=== PATIENT | female | born 1960 | race Caucasian/White ===

== ENCOUNTER 2020-01-01 06:58 | Inpatient (IN) | payer OTHER ==
[2020-01-01] VITALS (29 sets, daily range): BP systolic 45–147; BP diastolic 14–83
[~2020-01-01] VITALS: Ht 154.9 cm; Wt 50.3 kg
[2020-01-01] MEDS ORDERED: CELEBREX50 MG PO (07:25)
[2020-01-01] MEDS ORDERED: FOLIC ACID1 MG PO (07:25)
[2020-01-01] MEDS ORDERED: ATENOLOL 25 MG25 M1 PO (07:25)
[2020-01-01] MEDS ORDERED: PREDNISONE 5 MG5 M1 PO (07:25)
[2020-01-01] MEDS ORDERED: SPIRONOLACTONE25 MG PO (07:26)
[2020-01-01] MEDS ORDERED: SUPER THERAVIT1 EACH PO (07:26)
[2020-01-01 07:40] LABS: HEMATOCRIT 41.3 % (37.0-47.0); MCH 34.1 pg (26.0-34.0); MCHC 33.9 g/dL (28.0-37.0); MCV 100.5 fL (80.0-100.0); MPV 7.5 fl. (7.2-11.1); NUCLEATED RBCS 0 /100WBC; PLATELET COUNT* 425 thou/uL (150-400); RDW-CV 13.2 % (10.5-14.5); WBC 16.5 thou/uL (4.0-11.0)
[2020-01-01 07:44] LABS: APTT 18.7 Seconds (25.0-31.3)
[2020-01-01 08:08] LABS: CALCIUM 9.2 mg/dL (8.5-10.1); POTASSIUM 3.5 mmol/L (3.5-5.1)
[2020-01-01 08:11] LABS: ABSOLUTE EOSINOPHILS 0.8 thou/uL (0.0-0.7); ABSOLUTE LYMPHOCYTES 8.3 thou/uL (0.8-5.3); ABSOLUTE MONOCYTES 1.3 thou/uL (0.0-1.2); ABSOLUTE NEUTROPHILS 6.1 thou/uL (1.6-8.1); PLATELET ESTIMATE ADEQUATE
[2020-01-01 08:23] LABS: ALBUMIN 3.8 g/dL (3.4-5.0); MAGNESIUM 2.2 mg/dL (1.8-2.4); TOTAL BILIRUBIN 0.3 mg/dL (<0.1-1.0); TOTAL PROTEIN 7.7 g/dL (6.4-8.2)
[2020-01-01 09:41] LABS: CHOLESTEROL 242 mg/dL (<200); HDL CHOLESTEROL 61 mg/dL (>40); LDL CHOLESTEROL 133 mg/dL (<100); TRIGLYCERIDE 243 mg/dL (<150); VLDL 49 mg/dL (<40)
[2020-01-01 09:42] LABS: SERUM ASSESSMENT Clear
[2020-01-01] MEDS ORDERED: HYDROCODONE-AP1 EA11 PO (09:53)
--- NOTE | 2020-01-01 09:57 | EKG ---
[place] [address] ELECTROCARDIOGRAM REPORT Name: ROSA MARIA TORRES Room: [address] ADM IN .R.#: [id number] Admission: 01/01/20 Attend Phys: Keven Chatman, Discharge: Date of : 56 Date of Service: 01/01/20712 Report #: [id number] THIS REPORT FOR: //name// 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: DIONE : 1960 Requested By: Freddie Dickens Order Number: [id number] MD: Akira Busch Measurements Intervals [place] Rate: 46 P: 53 [place]: 162 QRS: -10 QRSD: 86 T: -4 QT: 558 QTc: 489 Interpretive Statements Sinus bradycardia Low voltage, precordial leads Posterior infarct, acute (LCx) Lateral leads are also involved Baseline wander in lead(s) V1 No previous ECG available for comparison Electronically Signed On 01-01-2020 9:57:34 CDT by Akira Busch [email or web address] <ELECTRONICALLY SIGNED> By: Akira Busch MD, [facility] 01/01/20 0957 2 2 Akira Busch MD, [facility] /EPI
--- NOTE | 2020-01-01 09:59 | EKG ---
[place] [address] ELECTROCARDIOGRAM REPORT Name: ROSA MARIA TORRES Room: [address] ADM IN M.R.#: [id number] Admission: 01/01/20 Attend Phys: Keven Chatman, Discharge: Date of : 56 Date of Service: 01/01/20 0926 Report #: [id number] THIS REPORT FOR: //name// [facility] Test Date: 2020-01-01 Test Time: 09:26:36 Pat Name: ROSA MARIA TORRES Department: Room: 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: : 1960 Requested By: Keven Chatman Order Number: [id number] Reading MD: Akira Busch Measurements Intervals [place] Rate: 70 P: 63 [place]: 156 QRS: 16 QRSD: 95 T: 32 QT: 444 QTc: 480 Interpretive Statements Sinus rhythm septal q waves noted Ventricular bigeminy Low voltage, precordial leads Minimal ST depression, anterior leads Compared to ECG 01/01/2020 07:13:59 Ventricular premature complex(es) now present Sinus bradycardia no longer present lateral injury pattern no longer noted Electronically Signed On 01-01-2020 9:59:34 CDT by Akira Busch [email or web address] <ELECTRONICALLY SIGNED> By: Akira Busch MD, [facility] 01/01/2059 5 5 Akira Busch MD, [facility] /EPI
[2020-01-02] VITALS (16 sets, daily range): BP systolic 108–147; BP diastolic 58–79
[2020-01-02 05:01] LABS: HEMATOCRIT 41.2 % (37.0-47.0); MCH 33.5 pg (26.0-34.0); MCHC 33.9 g/dL (28.0-37.0); MCV 98.8 fL (80.0-100.0); MPV 7.4 fl. (7.2-11.1); RBC 4.17 mil/uL (4.20-5.00); RDW-CV 13.3 % (10.5-14.5); WBC 13.7 thou/uL (4.0-11.0)
[2020-01-02 05:37] LABS: ALBUMIN 3.5 g/dL (3.4-5.0); CALCIUM 9.2 mg/dL (8.5-10.1); CREATININE 0.8 mg/dL (0.6-1.3); POTASSIUM 3.7 mmol/L (3.5-5.1); TOTAL BILIRUBIN 0.5 mg/dL (<0.1-1.0); TOTAL PROTEIN 7.4 g/dL (6.4-8.2)
[2020-01-02 05:42] LABS: TROPONIN-I LEVEL 10.13 ng/mL (<0.06)
--- NOTE | 2020-01-02 11:26 | EKG ---
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: : 1960 Requested By: Keven Chatman Order Number: [id number] Reading MD: Akira Busch Measurements Intervals [place] Rate: 70 P: 60 [place]: 149 QRS: 25 QRSD: 85 T: 84 QT: 444 QTc: 480 Interpretive Statements Sinus rhythm Abnrm T, consider ischemia, anterolateral lds Compared to ECG 01/01/2020 09:26:36 Ventricular premature complex(es) no longer present Electronically Signed On 01-02-2020 11:25:49 CDT by Akira Busch [email or web address] <ELECTRONICALLY SIGNED> By: Akira Busch MD, [facility] 01/02/20 1125 Akira Busch MD, [facility] /EPI
[2020-01-03] VITALS: BP 130/67
[2020-01-03 04:30] VITALS: BP 120/68
[2020-01-03 08:05] VITALS: BP 137/78
--- NOTE | 2020-01-03 11:08 | CARD ---
[address] [address] CARDIAC CATH REPORT Name: ROSA MARIA TORRES Room: [address] IN [facility]#: [id number] Admission: 01/01/20 Attend Phys: Keven Chatman MD Discharge: Date of : 56 Report #: [id number] THIS REPORT FOR: //name// cc: RUTH Jj No family physician/PCP RUTH Jj No family physician/PCP ~ APPROVED REPORT Study performed: 01/01/2020 07:14:53 Patient Details Patient Status: ED Room #: The patient is a 59 year-old female Event Personnel Keven Chatman Chemical Dependency Therapist, Shawnee Shaver RN RN, Donnie Ochoa RTR Scrub, Inez Stewart RTR Monitor, Nafisa Bull RN RN, James Bill Label Stamper Procedures Performed Art Access - R femoral artery Colt Access - R femoral vein Left Heart Cath w/or w/o Coronaries CARLA Place w/wo Plasty Single LAD CARLA Revasc AMI Total/Sub Single DIAG Hemostasis w/ Angioseal Venous Sheath sutured in place Indication STEMI Risk Factors Obesity, Hypercholesterolemia Admission/Lab Medications/Medications given during procedure Lidocaine Subcut 14 ml, Angiomax IV 10 ml, Angiomax Drip IV 22.75 ml per hr, Zofran (Ondansetron) IV 4 mg, Nitroglycerin IC 4, Effient PO 60 mg Procedure Narrative The patient was brought emergently to the Cardiac Catheterization Laboratory and was prepped and draped in a sterile manner. The right femoral was infiltrated with 2% Lidocaine subcutaneous anesthesia. A Girdler 6 FR sheath was inserted into the right femoral artery. Coronary angiography was performed using coronary diagnostic catheters. The right coronary system was accessed and visualized with a Diagnostic 6 Fr JR 4 catheter. The left coronary system was accessed and visualized with a Diagnostic 6 Fr JL 4 [place] [address] CARDIAC CATH REPORT Name: ROSA MARIA TORRES Room: [address] IN .R.#: [id number] Admission: 01/01/20 Attend Phys: Keven Chatman MD Discharge: Date of : 56 Report #: [id number] left ventricle was accessed and visualized with a Diagnostic 6 Fr Pigtail catheter. Left ventricular/Aortic Valve gradient assessed via catheter pullback. Left ventriculogram was performed in WHITE projection. Pre-demployment femoral angiogram was performed . Closure device was deployed with a Fr Angioseal 6 Fr. The patient tolerated the procedure well and there were no complications associated with the procedure. There was no hematoma. 5 Fr sheath was inserted in the right femoral vein. At the end of the case the venous sheath was sutured in place and covered in a sterile dressing. Intraoperative Conscious Sedation No Sedation given. Case start time was 07:41 and case end time was 08:31. Fluoro Time: 10.0 minutes Dose: DAP 57034 cGycm2 1013 mGy Contrast Type and Amount: Visipaque 280 ml Coronary Angiography The patient's coronary anatomy is right dominant. Diagnostic Cath Left Main 0% narrowing LAD 80% mid vessel stenosis with 100% first diagonal occlusion with prominent intraluminal thrombus Circumflex 50% mid circumflex narrowing Right Coronary Dominant vessel with 40% proximal mid and distal narrowings Left Ventriculography The left ventricle is normal in size with normal contractility. The left ventricular ejection fraction is estimated to be 60%. Left ventricular wall motion abnormalities are present. There is no mitral insufficiency. Focal mid anterior hypo-akinesis is noted Hemodynamics The aortic pressure is 141/59 mmHg with a mean of 68 mmHg. The left ventricular pressure is 106/3 mmHg with a mean of mmHg. The left ventricular end diastolic pressure is 11 mmHg. PCI Technique Lesion Anticoagulation was achieved with Angiomax Drip. Patient was preloaded with Angiomax IV 10 ml. Percutaneous coronary intervention was performed on the first diagnonal branch segment. The lesion stenosis prior to intervention was 100% with ISAAC 0 flow. [place] 6[place] [address] CARDIAC CATH REPORT Name: ROSA MARIA TORRES Room: [address] IN ..#: [id number] Admission: 01/01/20 Attend Phys: Keven Chatman MD Discharge: Date of : 56 Report #: [id number] 3.5 Guide Catheter was used to engage the left ostium. A IG: BMW 190cm Interventional Guidewire was used to cross the lesion. BALLOON DILATION A Balloon catheter Euphora SC 2.0x12mm was inserted and inflated up to 8.00atm for 4seconds. Additional Inflation: 10.00atm for 8seconds. STENT DEPLOYMENT A drug-eluting stent [place] RX Stent 2.29Z33fb was inserted and inflated up to 12.00atm for 5seconds. Additional Inflation: 12.00atm for 4seconds. POST STENT DEPLOYMENT BALLOON DILATION A Balloon catheter NC Trek RX 2.25x12 was inserted and inflated up to 12.00atm for 5seconds. Additional Inflation: 14.00atm for 7seconds. Final angiography reveals 0 % stenosis with ISAAC 3 flow. PCI Technique Lesion 2 Percutaneous Coronary Intervention was performed on the mid left anterior descending artery segment. Patient was preloaded with Angiomax IV 10 ml. The lesion stenosis prior to intervention was 80% with ISAAC 3 flow. A 6F XB LAD 3.5 Guide Catheter was used to engage the left ostium. A IG: BMW 190cm Interventional Guidewire was used to cross the lesion. Stent Deployment A drug-eluting stent Xience Archana 2.68V02pl was inserted and inflated up to 9.00atm for 5seconds. Additional Inflation: 12.00atm for 5seconds. Additional Inflation: 14.00atm for 6seconds. Final angiography reveals 0 % stenosis with ISAAC 3 flow. Conclusion 1. Significant coronary artery disease characterized by the following: A 80% mid LAD stenosis with 100% proximal first diagonal occlusion with prominent intraluminal thrombus B 50% mid circumflex narrowing C 40% proximal mid and distal right coronary narrowings, this being a [facility] [address] [facility] [place] [address] CARDIAC CATH REPORT Name: ROSA MARIA TORRES Room: [address] IN M.R.#: [id number] Admission: 01/01/20 Attend Phys: Keven Chatman MD Discharge: Date of : 56 Report #: [id number] dominant vessel 2. STEMI related to the total occlusion of the first diagonal branch 3. Normal global LV function, estimated ejection fraction being 60% with focal mid anterior hypo- akinesis 5. Successful PCI with deployment of a drug-eluting stent at the site of 100% first diagonal occlusion with 0% residual narrowing ISAAC-3 flow to the distal vessel no residual thrombus 6. Successful PCI with deployment of drug-eluting stent at the site of 80% mid LAD stenosis with 0% residual narrowing and ISAAC-3 flow to the distal vessel Recommendations Cardiac Risk Reduction Program Aggressive Medical Therapy Medications Administered Aspirin (any) Prasugrel Diagnostic Cath Approved by: Keven Chatman MD Date/Time: 01/03/2020 11:04:56 <ELECTRONICALLY SIGNED> By: James Bill MD, [facility] 01/03/20 1107 1107 [id number] Bill MD, FAC /INF
[2020-01-03 11:48] VITALS: BP 133/70
[2020-01-03 12:02] VITALS: BP 142/79
[2020-01-03] MEDS ORDERED: EFFIENT10 MG PO (15:31)
[2020-01-03] MEDS ORDERED: ASPIR 8181 MG PO (15:31)
[2020-01-03] MEDS ORDERED: LIPITOR 40 MG T40 M1 PO (15:31)
[2020-01-03 15:42] VITALS: BP 133/70
--- NOTE | 2020-01-04 08:41 | D ---
[address] [address] DISCHARGE SUMMARY Name: WARREN TORRESYessenia Johns Room: [address] IN M.R.#: [id number] Admission: 01/01/20 Attend Phys: Keven Chatman MD Discharge: 01/03/20 Date of : 56 Report #: [id number] THIS REPORT FOR: //name// cc: RUTH Juilen family physician/PCP RUTH - Anaya family physician/PCP ~ THIS REPORT FOR: //name// CC: RUTH physician/PCP Keven Chatman DATE OF SERVICE: 01/01/2020 CARDIOLOGY DISCHARGE SUMMARY DISCHARGE DIAGNOSES: 1. ST elevation myocardial infarction. 2. Hypertension. 3. Dyslipidemia. 4. Tobacco use. 5. Rheumatoid arthritis. PROCEDURES DURING THE HOSPITALIZATION: 1. Coronary angiography. 2. Left ventriculography. 3. Left heart catheterization. 4. Percutaneous coronary intervention to the first diagonal branch of the LAD and the left anterior descending coronary artery with drug-eluting stent placement. HOSPITAL COURSE: The patient presented to the hospital with chest pain. EKG suggested acute ST elevation myocardial infarction. The patient was taken emergently to the catheterization lab and was found to have an acutely occluded large diagonal branch. The patient underwent emergent percutaneous coronary intervention with drug-eluting stent placement with excellent result. At that time, the patient was noted to have a moderate 70% mid LAD stenosis for which she received a single drug-eluting stent. She had no other occlusive disease noted. Left ventricular systolic function was fairly well preserved with mild anteroapical hypokinesis on left ventriculography. Cardiac risk factors identified included dyslipidemia, hypertension and tobacco use as well as family history of coronary artery disease. The patient was placed on appropriate medications. The remainder of her hospitalization was fairly unremarkable. She is being discharged uneventfully. DISCHARGE MEDICATIONS: Will include Effient 10 mg daily, aspirin 81 mg daily, atorvastatin 40 mg daily, Nitrostat sublingual p.r.n., spironolactone 25 mg daily, atenolol 25 mg daily, Celebrex 50 mg daily, folic acid 1 mg daily, [place] [address] DISCHARGE SUMMARY Name: ROSA MARIA TORRES Room: [address]#: [id number] Admission: 01/01/20 Attend Phys: Keven Chatman MD Discharge: 01/03/20 Date of : 56 Report #: [id number] hydrocodone/acetaminophen 7.5/325 one tablet b.i.d., multivitamin 1 tablet daily, prednisone 5 mg daily. DISPOSITION: The patient is to follow up with Cardiology nurse practitioner in the next 2-4 weeks. <ELECTRONICALLY SIGNED> By: Keven Chatman MD, [facility] 01/04/20 0841 1537 [id number] Chatman MD, FACC /nt
== END 2020-01-03 16:14 | disposition home or self-care (01) | DRG 247 ==
LOC: M.ERS 06:58 → M.CL 06:58 → M.ICU 08:21 → M.TBA-CV 08:21 → M.ICU 09:12 → M.2W 01-02 13:58
PROVIDERS: Family Medicine; Registered Nurse; ADMIT Internal Medicine Cardiovascular Disease; ATTEND Internal Medicine Cardiovascular Disease
PROC: 027135Z Dilation of Coronary Artery, Two Arteries with Two Drug-eluting Intraluminal Devices, Percutaneous Approach (ICD-10-PCS; principal; 2020-01-01)
PROC: B215YZZ Fluoroscopy of Left Heart using Other Contrast (ICD-10-PCS; principal; 2020-01-01)
PROC: B211YZZ Fluoroscopy of Multiple Coronary Arteries using Other Contrast (ICD-10-PCS; principal; 2020-01-01)
PROC: B41F1ZZ Fluoroscopy of Right Lower Extremity Arteries using Low Osmolar Contrast (ICD-10-PCS; principal; 2020-01-01)
PROC: 4A023N7 Measurement of Cardiac Sampling and Pressure, Left Heart, Percutaneous Approach (ICD-10-PCS; principal; 2020-01-01)
DX: I21.09 ST elevation (STEMI) myocardial infarction involving other coronary artery of anterior wall (principal); M06.9 Rheumatoid arthritis, unspecified; I10 Essential (primary) hypertension; F17.210 Nicotine dependence, cigarettes, uncomplicated; E78.5 Hyperlipidemia, unspecified; Z90.710 Acquired absence of both cervix and uterus; Z88.6 Allergy status to analgesic agent